=== PATIENT | female | born 1970 | race Hispanic/Latino ===

== ENCOUNTER → 2016-10-07 | Outpatient (CLI) | payer SELFPAY | LOC: MW.CHRC 14:20 | PROVIDERS: ATTEND Family Medicine | DX: R05 Cough (principal) | CPT/HCPCS: 87804 ==

== ENCOUNTER 2018-04-25 07:38 | Observation (INO) | payer SELFPAY ==
[~2018-04-25 07:38] MED LIST: Dexamethasone 4 MG/ML 5 ML MDV ONE; Docusate Sodium 100 MG Cap PO PRN; Ibuprofen 600 MG Tab PO PRN; Lidocaine 2% 5 ML SDV ONE; Midazolam 1 MG/ML 2 ML SDV ONE; Morphine 2 MG/ML Syringe IVPUSH PRN; Ondansetron 4 MG Tab.DIS PO PRN; Ondansetron 4 MG/2 ML SDV IVPUSH PRN; Ondansetron 4 MG/2 ML SDV ONE; Promethazine 25 MG Tab PO PRN; Propofol 200 MG/20 ML SDV ONE; Rocuronium 10 MG/ML 10 ML Syringe ONE; Succinylcholine 200 MG/10 ML MDV ONE; diphenhydrAMINE 25 MG Cap PO PRN; fentaNYL 250 MCG/5 ML SDV ONE
[2018-04-25] MEDS ORDERED: Bupivacaine 0.25%/EPINEPHrine 1:200,000 10 ML SDV INJECT ONE (08:00)
[2018-04-25] MEDS ORDERED: ceFAZolin 2 GM in Premix Bag 1 BAG IV ONE (08:00)
[2018-04-25] MEDS: Lactated Ringers 1,000 ML IV SCH ×2 (08:45→17:40)
--- NOTE | 2018-04-25 08:57 | PCM.PREANE ---
Preanesthetic Assessment - Procedure Proposed Procedure: Mastectomy -right, reconstruction bilateral - Anesthesia/Transfusion/Family Hx Anesthesia History: Prior Anesthesia Without Reaction Transfusion History: No Prior Transfusion(s) Intubation History: Unknown - Review of Systems General: No Symptoms Pulmonary: No Symptoms, Other (Q day smoker) Cardiovascular: No Symptoms Gastrointestinal: No Symptoms Neurological: No Symptoms Other: Reports: None - Physical Assessment NPO Status Date: 04/24/18 NPO Status Time: 21:00 O2 Sat by Pulse Oximetry: 99 Respiratory Rate: 15 Vital Signs: Last Vital Signs Temp 99.0 F 04/25/18 08:15 Pulse 75 04/25/18 08:15 Resp 15 04/25/18 08:15 BP 128/66 04/25/18 08:15 Pulse Ox 99 04/25/18 08:15 Height: 5 ft 5 in Weight: 147 lb ASA Class: 2 Mental Status: Other (Swazi speaking and requested NAY interpretaion of the anesthesia consent.) Airway Class: Mallampati = 2 Dentition: Reports: Normal Dentition, [place](s) (frontal caps) Thyro-Mental Finger Breadths: 3 Mouth Opening Finger Breadths: 3 ROM/Head Extension: Limited/Partial Lungs: Clear to Auscultation, Normal Respiratory Effort Cardiovascular: Regular Rate, Regular Rhythm, No Murmurs - Lab Values: Laboratory Last Values HCG, Qual NEGATIVE (NEG) 04/25/18 08:19 - Allergies Allergies/Adverse Reactions: Allergies Allergy/AdvReac Type Severity Reaction Status Date / Time No Known Allergies Allergy Verified 04/20/18 09:29 - Blood Blood Available: No Product(s) Available: None - Anesthesia Plan Pre-Op Medication Ordered: None - Acknowledgements Anesthesia Type Planned: General Anesthesia (OETT) Pt an Appropriate Candidate for the Planned Anesthesia: Yes Alternatives and Risks of Anesthesia Discussed w Pt/Guardian: Yes Pt/Guardian Understands and Agrees with Anesthesia Plan: Yes PreAnesthesia Questionnaire HEENT History: Reports: Other (See Below) Other HEENT History: dental implant Gastrointestinal History: Reports: None Genitourinary History: Reports: None 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 [No Known Home Meds] 04/20/18 [History] - CURRENT (IN HOUSE) MEDS Current Meds: Current Medications Hydrocodone Bitart/Acetaminophen ([place] 325-5 Mg) 1 tab PO Q4H PRN PRN Reason: Pain Diphenhydramine HCl (Benadryl) 25 mg PO Q6H PRN PRN Reason: Itching Docusate Sodium (Colace) 100 mg PO BID PRN PRN Reason: Constipation Lactated Ringer's (Ringers, Lactated) 1,000 mls @ 125 mls/hr IV ASDIRECTED [facility] Last Admin: 04/25/18 08:45 Dose: 125 mls/hr Ibuprofen (Motrin) 600 mg PO Q6H PRN PRN Reason: Pain Morphine Sulfate (Morphine) 2 mg IVPUSH Q2H PRN PRN Reason: Pain (severe 7-10) Ondansetron HCl (Zofran Odt) 4 mg PO Q4H PRN PRN Reason: Nausea/Vomiting Ondansetron HCl (Zofran) 4 mg IVPUSH Q6H PRN PRN Reason: Nausea/Vomiting Promethazine HCl (Phenergan) 25 mg PO Q6H PRN PRN Reason: Nausea/Vomiting Discontinued Medications Bupivacaine HCl/Epinephrine Bitart (Marcaine 0.25%/Epinephrine 1:200,000) 10 ml INJECT ONETIME ONE Stop: 04/25/18 08:01 Dexamethasone (Dexamethasone) Confirm Administered Dose 20 mg .ROUTE .STK-MED ONE Stop: 04/25/18 07:21 Fentanyl (Sublimaze) Confirm Administered Dose 250 mcg .ROUTE .STK-MED ONE Stop: 04/25/18 07:11 Cefazolin Sodium/Dextrose 2 gm (/ Premix) 50 mls @ 100 mls/hr IV ONETIME ONE Stop: 04/25/18 08:29 Lidocaine (Xylocaine-Mpf 2%) Confirm Administered Dose 5 ml .ROUTE .STK-MED ONE Stop: 04/25/18 07:11 Midazolam HCl (Versed 1 Mg/Ml) Confirm Administered Dose 2 mg .ROUTE .STK-MED ONE Stop: 04/25/18 07:11 Ondansetron HCl (Zofran) Confirm Administered Dose 4 mg .ROUTE .STK-MED ONE Stop: 04/25/18 07:11 Propofol (Diprivan 20 Ml) Confirm Administered Dose 200 mg .ROUTE .STK-MED ONE Stop: 04/25/18 07:11 Rocuronium [place] (Zemuron) Confirm Administered Dose 100 mg .ROUTE .STK-MED ONE Stop: 04/25/18 07:11 Succinylcholine Chloride (Quelicin) Confirm Administered Dose 200 mg .ROUTE .STK -MED ONE Stop: 04/25/18 07:11
[2018-04-25] MEDS ORDERED: EPINEPHrine 1 MG/ML SDV ONE (10:16)
[2018-04-25] MEDS ORDERED: Gentamicin 40 MG/ML 2 ML Vial ONE (10:16)
[2018-04-25] MEDS ORDERED: Bupivacaine 25%/EPINEPHrine/PF 30 ML ONE (10:16)
[2018-04-25] MEDS ORDERED: ceFAZolin 1 GM Vial ONE ×2 (10:16→11:06)
[2018-04-25] MEDS ORDERED: Sodium Chloride 0.9% 20 ML ONE (11:06)
[2018-04-25] MEDS ORDERED: Glycopyrrolate 0.2 MG/ML SDV ONE ×2 (11:12→14:02)
[2018-04-25] MEDS ORDERED: Phenylephrine/Normal Saline 100 MCG/ML 10 ML Syringe ONE (11:16)
[2018-04-25] MEDS ORDERED: ePHEDrine 50 MG/ML SDV ONE (11:29)
--- NOTE | 2018-04-25 12:53 | PCM.OPNOTE ---
- General Post-Op/Procedure Note Date of Surgery/Procedure: 04/25/18 Operative Procedure(s): Right mastectomy Findings: Right breast mastectomy. Mammogram shows clips in specimen. Thickened area of tissue along inferior lateral edge of breast. Pre Op Diagnosis: DCIS Post-Op Diagnosis: DCIS Anesthesia Technique: General ET Tube Primary Surgeon: Diana Garrido Secondary Surgeon: Janel Daily Laminator Preforms: Angelica Curiel Pathology: right breast EBL in mLs: 50 Condition: Good
[2018-04-25] MEDS ORDERED: HYDROmorphone 2 MG/ML SDV ONE (13:08)
[2018-04-25] MEDS ORDERED: Dexamethasone 4 MG/ML 5 ML MDV ONE (13:09)
[2018-04-25] MEDS ORDERED: fentaNYL 100 MCG/2 ML SDV IVPUSH PRN (13:27)
[2018-04-25] MEDS ORDERED: Neostigmine Methylsulfate 1 MG/ML 5 ML Syringe ONE (14:02)
--- NOTE | 2018-04-25 14:06 | OR ---
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 POSTOPERATIVE DIAGNOSIS: Right breast ductal carcinoma in situ. PROCEDURE PERFORMED: Right mastectomy. SECONDARY SURGEON: Janel Daily MD LIVING SPECIALIST: SHAHEEN Hughes FLUIDS: See anesthesia record. ESTIMATED BLOOD LOSS: 50 mL. URINE OUTPUT: See anesthesia record. FINDINGS: Right breast mastectomy. Preoperative biopsy clip noted within postoperative mammogram, thickened tissue along the inferior lateral edge of the right breast. COMPLICATIONS: None. INDICATIONS: The patient is a 47-year-old female, who was found to have a calcifications that were increasing in size on a recent screening mammogram. A biopsy was performed, which showed DCIS. The patient and I discussed lumpectomy versus mastectomy. After discussion of all the risks and benefits, the patient elected to undergo mastectomy. She met with Dr. Janel Daily regarding immediate reconstruction. I discussed the risks, the expected perioperative course and the risks of mastectomy including bleeding, infection, or damage to surrounding structures. The patient verbalized understanding and wishes to proceed. PROCEDURE IN DETAIL: The patient was brought into the OR and placed on the OR table in supine position. A time-out was completed verifying the patient's name, age, date of , allergies, and procedure to be performed. General endotracheal anesthesia was induced. A Moran catheter was placed. Chest was prepped and draped in usual standard fashion. I anesthetized the area of my incision with 0.25% Marcaine with epinephrine solution and then a 10 blade was used to make a superior circumareolar incision, which was then carried out laterally along the 10 o'clock position. Cautery was used to dissect down the level of subcutaneous fat. Skin flaps were then raised using tension/countertension placed on the breast mound and skin. These flaps were raised superiorly and just below the clavicle, medially to the sternum, laterally towards the axillary fat, and inferiorly towards the rectus abdominis fascia. Throughout the dissection, we palpated the skin to ensure that we were in the correct surgical plane. While making these flaps, it was noted that the patient had some thickened tissue along the inferior lateral breast edge. When Dr. Daily reinspected this area. We agreed that the tissue along here was too thick. A second specimen along the skin flap was taken. This was placed on the main specimen and sutured to the breast mound in correct orientation with 2-0 silk suture. Once the flaps were completed, the breast mound was dissected off the pectoralis fascia in medial to lateral fashion. All bleeding was controlled with cautery. The specimen was then removed and placed on the back table. Here it was oriented with 2-0 silk sutures and surgical clips. The axillary tail was marked with two surgical clips for radiographic identification as well as a double long suture. The medial edge was marked with one clip and a double short suture. The subareolar area, which was anterior side of the breast was marked with a single long suture. The superior margin was marked with a double-loop suture and three small surgical clips. The inferior margin was marked with a single looped suture. The case was then turned over to Dr. Janel Daily. Please see her note for further details. TAMIA ANGEL /[id number] RALPH
--- NOTE | 2018-04-25 15:06 | PCM.POSTAN ---
POST ANESTHESIA ASSESSMENT - MENTAL STATUS Mental Status: Alert, Oriented - RESPIRATORY Respiratory Status: Respiratory Rate WNL, Airway Patent, O2 Saturation Stable - CARDIOVASCULAR CV Status: Pulse Rate WNL, Blood Pressure Stable - GASTROINTESTINAL GI Status: No Symptoms - PAIN Pain Score: 6 - POST OP HYDRATION Hydration Status: Adequate & Stable - OBSERVATIONS Free Text/Narrative:: no anesthesia problems
--- NOTE | 2018-04-25 16:04 | MY ---
EXAMINATION: Specimen mammograms HISTORY: Abnormal findings COMPARISON: 01/31/2018 TECHNIQUE: 2 specimen mammograms were provided. FINDINGS/IMPRESSION: Specimens demonstrate a possible clip noted near D1 on the first mammogram and a long the right aspect of the screen on the second specimen.
--- NOTE | 2018-04-25 16:23 | PCM.OPNOTE ---
- General Post-Op/Procedure Note Date of Surgery/Procedure: 04/25/18 Operative Procedure(s): right breast reconstruction s/p mastectomy with direct to implant, left breast symmetry breast implant and lift. Pre Op Diagnosis: right breast mastectomy and need for reconstruction Post-Op Diagnosis: Same Anesthesia Technique: General ET Tube, Local Primary Surgeon: Janel Daily [employer]: Angelica Curiel Surgical Drain/Tube Type: Juve Rogers Drain (size 7 x 2 right breast.) Complications: None Condition: Good Free Text/Narrative:: Intake & Output 04/25/18 04/25/18 04/25/18 07:59 15:59 23:59 Intake Total 2550 Output Total 675 Balance 1875
[2018-04-25] MEDS: Cyclobenzaprine 5 MG Tab PO SCH ×3 (17:37→23:42)
[2018-04-25] MEDS: Cephalexin 500 MG Cap PO SCH ×2 (17:37→23:58)
[2018-04-25] MEDS: Acetaminophen/HYDROcodone 325-5 MG Tab PO PRN ×2 (17:38→22:12)
[2018-04-26] MEDS: Lactated Ringers 1,000 ML IV SCH ×2 (02:11→10:39)
[2018-04-26] MEDS: Cephalexin 500 MG Cap PO SCH ×3 (05:34→18:34)
[2018-04-26] MEDS: Acetaminophen/HYDROcodone 325-5 MG Tab PO PRN (05:34)
[2018-04-26] MEDS: Cyclobenzaprine 5 MG Tab PO SCH ×3 (05:35→18:35)
--- NOTE | 2018-04-26 10:49 | PCM48HPAN ---
Post Anesthesia Note - EVALUATION WITHIN 48HRS OF ANESTHETIC Vital Signs in Normal Range: Yes Patient Participated in Evaluation: Yes Respiratory Function Stable: Yes Airway Patent: Yes Cardiovascular Function Stable: Yes Hydration Status Stable: Yes Pain Control Satisfactory: Yes Nausea and Vomiting Control Satisfactory: Yes Mental Status Recovered: Yes Resp Rate: 17 - COMMENTS/OBSERVATIONS Free Text/Narrative:: Doing well with only [place] required to cover her discomfort. Possible discharge later today.
--- NOTE | 2018-04-26 13:34 | PCM.SURGPN ---
- General Info Date of Service: 04/26/18 Date of Surgery/Procedure: 04/25/18 POD#: 1 Functional Status: Reports: Pain Controlled, Tolerating Diet, Ambulating, Other (One episode of vomiting last night. Well controlled afterwards with zosyn. ) - Review of Systems General: Reports: No Symptoms Cardiovascular: Reports: No Symptoms Gastrointestinal: Reports: No Symptoms Genitourinary: Reports: No Symptoms - Patient Data Vitals - Most Recent: Last Vital Signs Temp 37.1 C 04/26/18 11:54 Pulse 85 04/26/18 11:54 Resp 16 04/26/18 11:54 BP 101/59 L 04/26/18 11:54 Pulse Ox 99 04/26/18 11:54 Weight - Most Recent: 66.678 kg I&O - Last 24 Hours: Intake & Output 04/25/18 04/26/18 04/26/18 22:59 06:59 14:59 Intake Total 2550 1767 Output Total 1595 Balance 2550 172 Med Orders - Current: Current Medications Hydrocodone Bitart/Acetaminophen ([place] 325-5 Mg) 1 tab PO Q4H PRN PRN Reason: Pain Last Admin: 04/26/18 05:34 Dose: 1 tab Cephalexin (Keflex) 500 mg PO Q6HR [facility] Last Admin: 04/26/18 12:05 Dose: 500 mg Cyclobenzaprine HCl (Flexeril) 5 mg PO QID [facility] Last Admin: 04/26/18 12:05 Dose: 5 mg Diphenhydramine HCl (Benadryl) 25 mg PO Q6H PRN PRN Reason: Itching Docusate Sodium (Colace) 100 mg PO BID PRN PRN Reason: Constipation Lactated Ringer's (Ringers, Lactated) 1,000 mls @ 125 mls/hr IV ASDIRECTED [facility] Last Admin: 04/26/18 10:39 Dose: 125 mls/hr Ibuprofen (Motrin) 600 mg PO Q6H PRN PRN Reason: Pain Last Admin: 04/26/18 12:05 Dose: 600 mg Morphine Sulfate (Morphine) 2 mg IVPUSH Q2H PRN PRN Reason: Pain (severe 7-10) Last Admin: 04/25/18 15:42 Dose: 2 mg Ondansetron HCl (Zofran Odt) 4 mg PO Q4H PRN PRN Reason: Nausea/Vomiting Ondansetron HCl (Zofran) 4 mg IVPUSH Q6H PRN PRN Reason: Nausea/Vomiting Last Admin: 04/25/18 22:33 Dose: 4 mg Promethazine HCl (Phenergan) 25 mg PO Q6H PRN PRN Reason: Nausea/Vomiting Discontinued Medications Bacitracin (Bacitracin) Confirm Administered Dose 50,000 units .ROUTE .STK-MED ONE Stop: 04/25/18 10:18 Bupivacaine HCl/Epinephrine Bitart ([place] 0.25%/Epinephrine 1:200,000) 10 ml INJECT ONETIME ONE Stop: 04/25/18 08:01 Last Admin: 04/25/18 20:22 Dose: Not Given Cefazolin Sodium (Ancef) Confirm Administered Dose 1 gm .ROUTE .STK-MED ONE Stop: 04/25/18 10:17 Cefazolin Sodium (Ancef) Confirm Administered Dose 2 gm .ROUTE .STK-MED ONE Stop: 04/25/18 11:07 Dexamethasone (Dexamethasone) Confirm Administered Dose 20 mg .ROUTE .STK-MED ONE Stop: 04/25/18 07:21 Dexamethasone (Dexamethasone) Confirm Administered Dose 20 mg .ROUTE .STK-MED ONE Stop: 04/25/18 13:10 Ephedrine Sulfate (Ephedrine Sulfate) Confirm Administered Dose 50 mg .ROUTE .STK-MED ONE Stop: 04/25/18 11:30 Epinephrine HCl (Adrenalin) Confirm Administered Dose 1 mg .ROUTE .STK-MED ONE Stop: 04/25/18 10:17 Fentanyl (Sublimaze) Confirm Administered Dose 250 mcg .ROUTE .STK-MED ONE Stop: 04/25/18 07:11 Fentanyl (Sublimaze) 50 mcg IVPUSH Q5M PRN PRN Reason: Pain (severe 7-10) Stop: 04/26/18 13:27 Gentamicin Sulfate (Gentamicin) Confirm Administered Dose 80 mg .ROUTE .STK-MED ONE Stop: 04/25/18 10:17 Glycopyrrolate (Robinul) Confirm Administered Dose 0.2 mg .ROUTE .STK-MED ONE Stop: 04/25/18 11:13 Glycopyrrolate (Robinul) Confirm Administered Dose 0.4 mg .ROUTE .STK-MED ONE Stop: 04/25/18 14:03 Hydromorphone HCl (Dilaudid) Confirm Administered Dose 2 mg .ROUTE .STK-MED ONE Stop: 04/25/18 13:09 Cefazolin Sodium/Dextrose 2 gm (/ Premix) 50 mls @ 100 mls/hr IV ONETIME ONE Stop: 04/25/18 08:29 Last Admin: 04/25/18 20:22 Dose: Not Given Bupivacaine HCl/Epinephrine Bitart (Sensorc Mpf 0.25%-Epi 1:[id number]) Confirm Administered Dose 30 mls @ as directed .ROUTE .STK-MED ONE Stop: 04/25/18 10:17 Sodium Chloride (Normal Saline) Confirm Administered Dose 20 mls @ as directed .ROUTE .STK-MED ONE Stop: 04/25/18 11:07 Lidocaine (Xylocaine-Mpf 2%) Confirm Administered Dose 5 ml .ROUTE .STK-MED ONE Stop: 04/25/18 07:11 Midazolam HCl (Versed 1 Mg/Ml) Confirm Administered Dose 2 mg .ROUTE .STK-MED ONE Stop: 04/25/18 07:11 Neostigmine Methylsulfate (Neostigmine) Confirm Administered Dose 5 mg .ROUTE .STK-MED ONE Stop: 04/25/18 14:03 Ondansetron HCl (Zofran) Confirm Administered Dose 4 mg .ROUTE .STK-MED ONE Stop: 04/25/18 07:11 Phenylephrine HCl (Phenylephrine In Ns 100 Mcg/Ml) Confirm Administered Dose 1 mg .ROUTE .STK-MED ONE Stop: 04/25/18 11:17 Propofol (Diprivan 20 Ml) Confirm Administered Dose 200 mg .ROUTE .STK-MED ONE Stop: 04/25/18 07:11 Rocuronium [place] (Zemuron) Confirm Administered Dose 100 mg .ROUTE .STK-MED ONE Stop: 04/25/18 07:11 Succinylcholine Chloride (Quelicin) Confirm Administered Dose 200 mg .ROUTE .STK -MED ONE Stop: 04/25/18 07:11 - Exam Wound/Incisions: Healing Well, Dressing Dry and Intact General: Alert, Oriented Lungs: Normal Respiratory Effort Cardiovascular: Regular Rate Skin: Warm, Dry, Intact Neurological: No New Focal Deficit Physical Findings Comment:: Drains with serosanguinous drainage. - Problem List & Annotations (1) DCIS (ductal carcinoma in situ) SNOMED Code(s): 216352684, 379659170 Code(s): D05.10 - INTRADUCTAL CARCINOMA IN SITU OF UNSPECIFIED BREAST Status: Acute Current Visit: Yes - Problem List Review Problem List Initiated/Reviewed/Updated: Yes - My Orders Last 24 Hours: Active Orders 24 hr Category Date Time Status Drain Management [RC] Q2H Care 04/25/18 20:17 Active Wound Care [RC] DAILY Care 04/25/18 20:20 Active Regular Diet [DIET] Diet 04/26/18 Breakfast Active Cyclobenzaprine [Flexeril] Med 04/25/18 17:00 Active 5 mg PO QID cephALEXin [Keflex] Med 04/25/18 18:00 Active 500 mg PO Q6HR Medication Orders Hydrocodone Bitart/Acetaminophen ([place] 325-5 Mg) 1 tab PO Q4H PRN PRN Reason: Pain Last Admin: 04/26/18 05:34 Dose: 1 tab Admin: 04/25/18 22:12 Dose: 1 tab Admin: 04/25/18 17:38 Dose: 1 tab Cephalexin (Keflex) 500 mg PO Q6HR [facility] Last Admin: 04/26/18 12:05 Dose: 500 mg Admin: 04/26/18 05:34 Dose: 500 mg Admin: 04/25/18 23:58 Dose: 500 mg Admin: 04/25/18 17:37 Dose: 500 mg Cyclobenzaprine HCl (Flexeril) 5 mg PO QID [facility] Last Admin: 04/26/18 12:05 Dose: 5 mg Admin: 04/26/18 05:35 Dose: 5 mg Admin: 04/25/18 23:42 Dose: 5 mg Admin: 04/25/18 19:22 Dose: Admin: 04/25/18 17:37 Dose: 5 mg Diphenhydramine HCl (Benadryl) 25 mg PO Q6H PRN PRN Reason: Itching Docusate Sodium (Colace) 100 mg PO BID PRN PRN Reason: Constipation Lactated Ringer's (Ringers, Lactated) 1,000 mls @ 125 mls/hr IV ASDIRECTED [facility] Last Admin: 04/26/18 10:39 Dose: 125 mls/hr Infusion: 04/26/18 10:11 Dose: 125 mls/hr Admin: 04/26/18 02:11 Dose: 125 mls/hr Infusion: 04/26/18 01:40 Dose: 125 mls/hr Admin: 04/25/18 17:40 Dose: 125 mls/hr Infusion: 04/25/18 16:45 Dose: 125 mls/hr Admin: 04/25/18 08:45 Dose: 125 mls/hr Ibuprofen (Motrin) 600 mg PO Q6H PRN PRN Reason: Pain Last Admin: 04/26/18 12:05 Dose: 600 mg Morphine Sulfate (Morphine) 2 mg IVPUSH Q2H PRN PRN Reason: Pain (severe 7-10) Last Admin: 04/25/18 15:42 Dose: 2 mg Ondansetron HCl (Zofran Odt) 4 mg PO Q4H PRN PRN Reason: Nausea/Vomiting Ondansetron HCl (Zofran) 4 mg IVPUSH Q6H PRN PRN Reason: Nausea/Vomiting Last Admin: 04/25/18 22:33 Dose: 4 mg Promethazine HCl (Phenergan) 25 mg PO Q6H PRN PRN Reason: Nausea/Vomiting - Assessment Assessment (Free Text/Narrative):: Drain output overnight is 95ml and appears serosanguinous. Discharge per plastics team. Patient doing well and pain seems to be well controlled. Follow up in 2 weeks with me in clinic.
[2018-04-26] MEDS ORDERED: Sodium Chloride 0.9% 10 ML Syringe FLUSH PRN (15:42)
[2018-04-26] MEDS ORDERED: Sodium Chloride 0.9% 2.5 ML Syringe FLUSH PRN (15:42)
--- NOTE | 2018-04-26 15:42 | PCM.PN ---
- General Info Date of Service: 04/26/18 Admission Dx/Problem (Free Text): breast reconstruction Subjective Update: Still with some pain and not quite well controlled with activity. Worried about caring for herself at home with her current discomfort. Discussed use of oral medications and scheduling this to avoid the throbbing pain she describes. Discussed drain tubes and she has not had a grea chance to learn about how to clear them and measure. We discussed continued observation for one more night to make sure we can get this under control for her. I do think some of it is miscommunication in being able to ask for additional medication if needed. We reinforced this today. All questions answered. Communication in [place]. Functional Status: Reports: Tolerating Diet, Urinating, Incentive Spirometry - Review of Systems General: Reports: No Symptoms HEENT: Reports: No Symptoms Pulmonary: Reports: No Symptoms Cardiovascular: Reports: No Symptoms Musculoskeletal: Reports: Other (chest muscle pain) Skin: Reports: Bruising. Denies: Pruritis, Rash Neurological: Reports: No Symptoms Psychiatric: Reports: No Symptoms - Patient Data Vitals - Most Recent: Last Vital Signs Temp 98.1 F 04/26/18 15:33 Pulse 71 04/26/18 15:33 Resp 18 04/26/18 15:33 BP 99/58 L 04/26/18 15:33 Pulse Ox 100 04/26/18 15:33 Weight - Most Recent: 147 lb I&O - Last 24 Hours: Intake & Output 04/25/18 04/26/18 04/26/18 23:59 07:59 15:59 Intake Total 1767 Output Total 1595 Balance 172 Med Orders - Current: Current Medications Hydrocodone Bitart/Acetaminophen ([place] 325-5 Mg) 1 tab PO Q4H PRN PRN Reason: Pain Last Admin: 04/26/18 05:34 Dose: 1 tab Cephalexin (Keflex) 500 mg PO Q6HR RONNI Last Admin: 04/26/18 12:05 Dose: 500 mg Cyclobenzaprine HCl (Flexeril) 5 mg PO QID RONNI Last Admin: 04/26/18 12:05 Dose: 5 mg Diphenhydramine HCl (Benadryl) 25 mg PO Q6H PRN PRN Reason: Itching Docusate Sodium (Colace) 100 mg PO BID PRN PRN Reason: Constipation Lactated Ringer's (Ringers, Lactated) 1,000 mls @ 125 mls/hr IV ASDIRECTED RONNI Last Admin: 04/26/18 10:39 Dose: 125 mls/hr Ibuprofen (Motrin) 600 mg PO Q6H PRN PRN Reason: Pain Last Admin: 04/26/18 12:05 Dose: 600 mg Morphine Sulfate (Morphine) 2 mg IVPUSH Q2H PRN PRN Reason: Pain (severe 7-10) Last Admin: 04/25/18 15:42 Dose: 2 mg Ondansetron HCl (Zofran Odt) 4 mg PO Q4H PRN PRN Reason: Nausea/Vomiting Ondansetron HCl (Zofran) 4 mg IVPUSH Q6H PRN PRN Reason: Nausea/Vomiting Last Admin: 04/25/18 22:33 Dose: 4 mg Promethazine HCl (Phenergan) 25 mg PO Q6H PRN PRN Reason: Nausea/Vomiting Discontinued Medications Bacitracin (Bacitracin) Confirm Administered Dose 50,000 units .ROUTE .STK-MED ONE Stop: 04/25/18 10:18 Bupivacaine HCl/Epinephrine Bitart ([place] 0.25%/Epinephrine 1:200,000) 10 ml INJECT ONETIME ONE Stop: 04/25/18 08:01 Last Admin: 04/25/18 20:22 Dose: Not Given Cefazolin Sodium (Ancef) Confirm Administered Dose 1 gm .ROUTE .STK-MED ONE Stop: 04/25/18 10:17 Cefazolin Sodium (Ancef) Confirm Administered Dose 2 gm .ROUTE .STK-MED ONE Stop: 04/25/18 11:07 Dexamethasone (Dexamethasone) Confirm Administered Dose 20 mg .ROUTE .STK-MED ONE Stop: 04/25/18 07:21 Dexamethasone (Dexamethasone) Confirm Administered Dose 20 mg .ROUTE .STK-MED ONE Stop: 04/25/18 13:10 Ephedrine Sulfate (Ephedrine Sulfate) Confirm Administered Dose 50 mg .ROUTE .STK-MED ONE Stop: 04/25/18 11:30 Epinephrine HCl (Adrenalin) Confirm Administered Dose 1 mg .ROUTE .STK-MED ONE Stop: 04/25/18 10:17 Fentanyl (Sublimaze) Confirm Administered Dose 250 mcg .ROUTE .STK-MED ONE Stop: 04/25/18 07:11 Fentanyl (Sublimaze) 50 mcg IVPUSH Q5M PRN PRN Reason: Pain (severe 7-10) Stop: 04/26/18 13:27 Gentamicin Sulfate (Gentamicin) Confirm Administered Dose 80 mg .ROUTE .STK-MED ONE Stop: 04/25/18 10:17 Glycopyrrolate (Robinul) Confirm Administered Dose 0.2 mg .ROUTE .STK-MED ONE Stop: 04/25/18 11:13 Glycopyrrolate (Robinul) Confirm Administered Dose 0.4 mg .ROUTE .STK-MED ONE Stop: 04/25/18 14:03 Hydromorphone HCl (Dilaudid) Confirm Administered Dose 2 mg .ROUTE .STK-MED ONE Stop: 04/25/18 13:09 Cefazolin Sodium/Dextrose 2 gm (/ Premix) 50 mls @ 100 mls/hr IV ONETIME ONE Stop: 04/25/18 08:29 Last Admin: 04/25/18 20:22 Dose: Not Given Bupivacaine HCl/Epinephrine Bitart (Sensorc Mpf 0.25%-Epi 1:535274) Confirm Administered Dose 30 mls @ as directed .ROUTE .STK-MED ONE Stop: 04/25/18 10:17 Sodium Chloride (Normal Saline) Confirm Administered Dose 20 mls @ as directed .ROUTE .STK-MED ONE Stop: 04/25/18 11:07 Lidocaine (Xylocaine-Mpf 2%) Confirm Administered Dose 5 ml .ROUTE .STK-MED ONE Stop: 04/25/18 07:11 Midazolam HCl (Versed 1 Mg/Ml) Confirm Administered Dose 2 mg .ROUTE .STK-MED ONE Stop: 04/25/18 07:11 Neostigmine Methylsulfate (Neostigmine) Confirm Administered Dose 5 mg .ROUTE .STK-MED ONE Stop: 04/25/18 14:03 Ondansetron HCl (Zofran) Confirm Administered Dose 4 mg .ROUTE .STK-MED ONE Stop: 04/25/18 07:11 Phenylephrine HCl (Phenylephrine In Ns 100 Mcg/Ml) Confirm Administered Dose 1 mg .ROUTE .STK-MED ONE Stop: 04/25/18 11:17 Propofol (Diprivan 20 Ml) Confirm Administered Dose 200 mg .ROUTE .STK-MED ONE Stop: 04/25/18 07:11 Rocuronium [place] (Zemuron) Confirm Administered Dose 100 mg .ROUTE .STK-MED ONE Stop: 04/25/18 07:11 Succinylcholine Chloride (Quelicin) Confirm Administered Dose 200 mg .ROUTE .STK -MED ONE Stop: 04/25/18 07:11 - Exam General: Alert, Oriented, Cooperative HEENT: Pupils Equal, Pupils Reactive Lungs: Normal Respiratory Effort Extremities: Normal Inspection Skin: Warm, Dry, Intact (Incisions healing nicely. No signs of breakdown or infection. ) Wound/Incisions: Healing Well, Dressing Dry and Intact, Drainage (in HALEY as expected. Serosanguinous. No signs of overt bleeding. 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 We discussed home cares and she will work with nursing on this today. All questions answered and pain control reinforced with her today. Hep lock IVF>
[2018-04-26] MEDS ORDERED: Acetaminophen/HYDROcodone 325-5 MG Tab PO PRN (20:56)
[2018-04-27] MEDS: Cephalexin 500 MG Cap PO SCH ×3 (00:49→12:38)
[2018-04-27] MEDS: Cyclobenzaprine 5 MG Tab PO SCH ×3 (00:50→12:38)
--- NOTE | 2018-04-27 10:57 | PCM.PN ---
- General Info Date of Service: 04/27/18 Admission Dx/Problem (Free Text): breast reconstruction Subjective Update: Much improved today and ready for home. Discussed wound cares and drains as well as medications. Functional Status: Reports: Pain Controlled, Tolerating Diet, Ambulating, Urinating, Incentive Spirometry. Denies: New Symptoms - Review of Systems General: Reports: No Symptoms HEENT: Reports: No Symptoms Pulmonary: Reports: No Symptoms Cardiovascular: Reports: No Symptoms Musculoskeletal: Reports: No Symptoms Skin: Reports: No Symptoms - Patient Data Vitals - Most Recent: Last Vital Signs Temp 98.2 F 04/27/18 09:17 Pulse 85 04/27/18 09:17 Resp 18 04/27/18 09:17 BP 102/58 L 04/27/18 09:17 Pulse Ox 99 04/27/18 09:17 Weight - Most Recent: 147 lb I&O - Last 24 Hours: Intake & Output 04/26/18 04/27/18 04/27/18 23:59 07:59 15:59 Intake Total 500 Output Total 1390 18 Balance -890 -18 Med Orders - Current: Current Medications Hydrocodone Bitart/Acetaminophen ([place] 325-5 Mg) 1 tab PO Q4H PRN PRN Reason: Pain Last Admin: 04/26/18 21:07 Dose: 1 tab Cephalexin (Keflex) 500 mg PO Q6HR RONNI Last Admin: 04/27/18 05:32 Dose: 500 mg Cyclobenzaprine HCl (Flexeril) 5 mg PO QID RONNI Last Admin: 04/27/18 05:33 Dose: 5 mg Diphenhydramine HCl (Benadryl) 25 mg PO Q6H PRN PRN Reason: Itching Docusate Sodium (Colace) 100 mg PO BID PRN PRN Reason: Constipation Ibuprofen (Motrin) 600 mg PO Q6H PRN PRN Reason: Pain Last Admin: 04/26/18 12:05 Dose: 600 mg Morphine Sulfate (Morphine) 2 mg IVPUSH Q2H PRN PRN Reason: Pain (severe 7-10) Last Admin: 04/25/18 15:42 Dose: 2 mg Ondansetron HCl (Zofran Odt) 4 mg PO Q4H PRN PRN Reason: Nausea/Vomiting Ondansetron HCl (Zofran) 4 mg IVPUSH Q6H PRN PRN Reason: Nausea/Vomiting Last Admin: 04/25/18 22:33 Dose: 4 mg Promethazine HCl (Phenergan) 25 mg PO Q6H PRN PRN Reason: Nausea/Vomiting Sodium Chloride (Saline Flush) 10 ml FLUSH ASDIRECTED PRN PRN Reason: Keep Vein Open Sodium Chloride (Saline Flush) 2.5 ml FLUSH ASDIRECTED PRN PRN Reason: Keep Vein Open Discontinued Medications Hydrocodone Bitart/Acetaminophen ([place] 325-5 Mg) 1 tab PO Q4H PRN PRN Reason: Pain Last Admin: 04/26/18 05:34 Dose: 1 tab Bacitracin (Bacitracin) Confirm Administered Dose 50,000 units .ROUTE .STK-MED ONE Stop: 04/25/18 10:18 Bupivacaine HCl/Epinephrine Bitart ([place] 0.25%/Epinephrine 1:200,000) 10 ml INJECT ONETIME ONE Stop: 04/25/18 08:01 Last Admin: 04/25/18 20:22 Dose: Not Given Cefazolin Sodium (Ancef) Confirm Administered Dose 1 gm .ROUTE .STK-MED ONE Stop: 04/25/18 10:17 Cefazolin Sodium (Ancef) Confirm Administered Dose 2 gm .ROUTE .STK-MED ONE Stop: 04/25/18 11:07 Dexamethasone (Dexamethasone) Confirm Administered Dose 20 mg .ROUTE .STK-MED ONE Stop: 04/25/18 07:21 Dexamethasone (Dexamethasone) Confirm Administered Dose 20 mg .ROUTE .STK-MED ONE Stop: 04/25/18 13:10 Ephedrine Sulfate (Ephedrine Sulfate) Confirm Administered Dose 50 mg .ROUTE .STK-MED ONE Stop: 04/25/18 11:30 Epinephrine HCl (Adrenalin) Confirm Administered Dose 1 mg .ROUTE .STK-MED ONE Stop: 04/25/18 10:17 Fentanyl (Sublimaze) Confirm Administered Dose 250 mcg .ROUTE .STK-MED ONE Stop: 04/25/18 07:11 Fentanyl (Sublimaze) 50 mcg IVPUSH Q5M PRN PRN Reason: Pain (severe 7-10) Stop: 04/26/18 13:27 Gentamicin Sulfate (Gentamicin) Confirm Administered Dose 80 mg .ROUTE .STK-MED ONE Stop: 04/25/18 10:17 Glycopyrrolate (Robinul) Confirm Administered Dose 0.2 mg .ROUTE .STK-MED ONE Stop: 04/25/18 11:13 Glycopyrrolate (Robinul) Confirm Administered Dose 0.4 mg .ROUTE .STK-MED ONE Stop: 04/25/18 14:03 Hydromorphone HCl (Dilaudid) Confirm Administered Dose 2 mg .ROUTE .STK-MED ONE Stop: 04/25/18 13:09 Cefazolin Sodium/Dextrose 2 gm (/ Premix) 50 mls @ 100 mls/hr IV ONETIME ONE Stop: 04/25/18 08:29 Last Admin: 04/25/18 20:22 Dose: Not Given Lactated Ringer's (Ringers, Lactated) 1,000 mls @ 125 mls/hr IV ASDIRECTED RONNI Last Admin: 04/26/18 10:39 Dose: 125 mls/hr Bupivacaine HCl/Epinephrine Bitart (Sensorc Mpf 0.25%-Epi 1:413300) Confirm Administered Dose 30 mls @ as directed .ROUTE .ST-MED ONE Stop: 04/25/18 10:17 Sodium Chloride (Normal Saline) Confirm Administered Dose 20 mls @ as directed .ROUTE .STK-MED ONE Stop: 04/25/18 11:07 Lidocaine (Xylocaine-Mpf 2%) Confirm Administered Dose 5 ml .ROUTE .STK-MED ONE Stop: 04/25/18 07:11 Midazolam HCl (Versed 1 Mg/Ml) Confirm Administered Dose 2 mg .ROUTE .STK-MED ONE Stop: 04/25/18 07:11 Neostigmine Methylsulfate (Neostigmine) Confirm Administered Dose 5 mg .ROUTE .STK-MED ONE Stop: 04/25/18 14:03 Ondansetron HCl (Zofran) Confirm Administered Dose 4 mg .ROUTE .STK-MED ONE Stop: 04/25/18 07:11 Phenylephrine HCl (Phenylephrine In Ns 100 Mcg/Ml) Confirm Administered Dose 1 mg .ROUTE .STK-MED ONE Stop: 04/25/18 11:17 Propofol (Diprivan 20 Ml) Confirm Administered Dose 200 mg .ROUTE .STK-MED ONE Stop: 04/25/18 07:11 Rocuronium [place] (Zemuron) Confirm Administered Dose 100 mg .ROUTE .STK-MED ONE Stop: 04/25/18 07:11 Succinylcholine Chloride (Quelicin) Confirm Administered Dose 200 mg .ROUTE .STK -MED ONE Stop: 04/25/18 07:11 - Exam General: Alert, Oriented, Cooperative HEENT: Pupils Reactive, EOMI Lungs: Normal Respiratory Effort Extremities: Normal Inspection Skin: Warm, Dry Wound/Incisions: Healing Well, Dressing Dry and Intact, Drainage (in [place]ALE[place] as expected) Neurological: No New Focal Deficit Psy/Mental Status: Alert, Normal Affect, Normal Mood - Problem List & Annotations (1) Admission for breast reconstruction following mastectomy SNOMED Code(s): 986064289, [id number] Code(s): Z42.1 - ENCOUNTER FOR BREAST RECONSTRUCTION FOLLOWING MASTECTOMY Status: Acute Priority: High Current Visit: Yes (2) DCIS (ductal carcinoma in situ) SNOMED Code(s): 688990442, 972627383 Code(s): D05.10 - INTRADUCTAL CARCINOMA IN SITU OF UNSPECIFIED BREAST Status: Acute Current Visit: Yes Qualifiers: Laterality: right Qualified Code(s): 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 All questions answered. Recheck early next week. Scripts sent to [facility]
== END 2018-04-27 13:45 | disposition home or self-care (01) ==
LOC: MW.SDS 07:38 → MW.MS 17:30 → MW.SDS 04-26 15:45
PROVIDERS: ADMIT Plastic Surgery; ATTEND Plastic Surgery
DX: D05.11 Intraductal carcinoma in situ of right breast (principal); N60.11 Diffuse cystic mastopathy of right breast; Z87.891 Personal history of nicotine dependence
CPT/HCPCS: 19303; 36415; 76098; 84703; 88309; A9270; C1762; G0378; J0171; J0330; J0690; J1100; J1170; J1580; J2250; J2270; J2370; J2405; J2704; J3010; J3490; J7120; 00400

== ENCOUNTER 2021-06-27 20:11 | Emergency (ER) | payer SELFPAY | END 2021-06-27 21:10 | disposition left against medical advice (07) | LOC: MW.ED 20:11 | DX: Z53.21 Procedure and treatment not carried out due to patient leaving prior to being seen by health care provider (principal) ==

== ENCOUNTER 2021-09-21 12:23 | Day surgery (SDC) | payer SELFPAY ==
[~2021-09-21 12:23] MED LIST changes: +Albuterol 0.083% 2.5 MG/3 ML Neb Soln NEB PRN; -Dexamethasone 4 MG/ML 5 ML MDV ONE; -Docusate Sodium 100 MG Cap PO PRN; +HYDROmorphone 1 MG/ML Syringe IVPUSH PRN; -Ibuprofen 600 MG Tab PO PRN; -Lidocaine 2% 5 ML SDV ONE; +Metoclopramide 10 MG/2 ML SDV IVPUSH PRN; +Morphine 2 MG/ML SYRINGE IVPUSH PRN; -Morphine 2 MG/ML Syringe IVPUSH PRN; +Naloxone 0.4 MG/ML SDV IVPUSH PRN; -Ondansetron 4 MG Tab.DIS PO PRN; -Promethazine 25 MG Tab PO PRN; -Rocuronium 10 MG/ML 10 ML Syringe ONE; +Sodium Chloride 0.9% 10 ML Syringe FLUSH PRN; +Sodium Chloride 0.9% 2.5 ML Syringe FLUSH PRN; +Sodium Chloride 0.9% 20 ML SDV IV PRN; -Succinylcholine 200 MG/10 ML MDV ONE; -diphenhydrAMINE 25 MG Cap PO PRN; +fentaNYL 100 MCG/2 ML SDV IVPUSH PRN; +fentaNYL 100 MCG/2 ML SDV ONE; -fentaNYL 250 MCG/5 ML SDV ONE
[2021-09-21] MEDS ORDERED: Ketorolac 30 MG/ML SDV ONE (13:18)
[2021-09-21] MEDS ORDERED: ePHEDrine 50 MG/ML SDV ONE (13:25)
[2021-09-21] MEDS ORDERED: Lactated Ringers 1,000 ML IV SCH (14:00)
== END 2021-09-21 14:34 | disposition home or self-care (01) ==
LOC: MW.SDS 12:23
PROVIDERS: ATTEND Obstetrics & Gynecology
DX: N84.0 Polyp of corpus uteri (principal); N80.0 Endometriosis of uterus; Z79.899 Other long term (current) drug therapy; Z98.890 Other specified postprocedural states; Z90.49 Acquired absence of other specified parts of digestive tract; Z85.3 Personal history of malignant neoplasm of breast; Z87.891 Personal history of nicotine dependence
CPT/HCPCS: 00952; 36415; 81025; 84702; 85027; J0131; J1885; J2250; J2405; J2704; J3010; J7120